=== PATIENT | male | born 1985 | race Hispanic/Latino ===

== ENCOUNTER 2017-11-30 16:01 | Emergency (ER) | payer SELFPAY ==
[2017-11-30] MEDS ORDERED: CEFTRIAXONE SODIUM 500 MG VIAL ONE (16:43)
[2017-11-30] MEDS ORDERED: LIDOCAINE HCL-MPF 1% 2ML VIAL ONE (16:43)
== END 2017-11-30 17:17 | disposition home or self-care (01) ==
LOC: EDH 16:01
DX: R36.9 Urethral discharge, unspecified (principal); Z72.0 Tobacco use
CPT/HCPCS: 96372; 99283; J0696; J3490

== ENCOUNTER 2018-09-16 14:02 | Emergency (ER) | payer SELFPAY | END 2018-09-16 14:31 | disposition home or self-care (01) | LOC: EDH 14:02 | DX: S50.861A Insect bite (nonvenomous) of right forearm, initial encounter (principal); S20.462A Insect bite (nonvenomous) of left back wall of thorax, initial encounter; L03.113 Cellulitis of right upper limb; L03.312 Cellulitis of back [any part except buttock and flank]; Z98.890 Other specified postprocedural states; W57.XXXA Bitten or stung by nonvenomous insect and other nonvenomous arthropods, initial encounter; Y93.89 Activity, other specified; Y92.89 Other specified places as the place of occurrence of the external cause; Y99.8 Other external cause status ==

== ENCOUNTER 2019-08-07 02:07 | Emergency (ER) | payer OTHER ==
[2019-08-07] VITALS (14 sets, daily range): BP systolic 98–154; BP diastolic 53–98
[2019-08-07] MEDS ORDERED: SODIUM CHLORIDE 0.9% 1000ML 1,000 ML IV ONE (02:33)
[2019-08-07] MEDS ORDERED: MORPHINE SULFATE 2 MG/ML 1ML SYG ONE (02:33)
[2019-08-07 02:35] LABS: BASOPHILS % (AUTO) 0.4 % (0.0-5.0); EOSINOPHILS % (AUTO) 1.8 % (0.0-8.0); HEMATOCRIT 47.7 % (42-54); LYMPHOCYTES % (AUTO) 59.6 % (21.0-51.0); MEAN CORPUSCULAR HEMOGLOBIN 28.9 pg (27.0-33.0); MEAN CORPUSCULAR VOLUME 85.2 fL (79-99); MONOCYTES % (AUTO) 5.1 % (3.0-13.0); NEUTROPHILS % (AUTO) 32.8 % (40.0-77.0); PLATELET COUNT (AUTO) 267 K/uL (130-400); RED CELL DISTRIBUTION WIDTH 12.5 % (11.0-15.5)
[2019-08-07] MEDS ORDERED: IOHEXOL 350 MG/ML 100ML INFUS..BTL IV ONE (02:40)
[2019-08-07 02:47] LABS: CREATININE 0.9 mg/dL (0.5-1.5); POTASSIUM 3.1 mmol/L (3.5-5.1)
[2019-08-07 02:49] LABS: ALBUMIN 3.9 g/dL (3.5-5.0); BILIRUBIN,TOTAL 0.4 mg/dL (0.2-1.0); TOTAL PROTEIN, SERUM 8.4 g/dL (6.0-8.3)
[2019-08-07 04:05] LABS: APPEARANCE,URINE Clear (CLEAR); BILIRUBIN,URINE Negative (NEGATIVE); COLOR,URINE Yellow (YELLOW); GLUCOSE, URINE (UA) TRACE mg/dL (NEGATIVE); KETONES,URINE Negative (NEGATIVE); LEUKOCYTE ESTERASE ,URINE Negative (NEGATIVE); NITRATE,URINE Negative (NEGATIVE); OCCULT BLOOD,URINE Negative (NEGATIVE); PH,URINE 6.5 (5.0-8.0); PROTEIN,URINE POS 1+ mg/dL (NEGATIVE); UROBILINOGEN,URINE 0.2 mg/dL (0.2-1.0)
[2019-08-07] MEDS ORDERED: MIDAZOLAM HCL 5 MG/ML 2ML VIAL IV ONE (04:05)
[2019-08-07 04:12] LABS: AMPHET/METH SCREEN,URINE NEGATIVE (NEGATIVE); BARBITURATE SCREEN, URINE NEGATIVE (NEGATIVE); BENZODIAZEPINES SCREEN,URINE NEGATIVE (NEGATIVE); CANNABINOID SCREEN,URINE NEGATIVE (NEGATIVE); COCAINE SCREEN,URINE NEGATIVE (NEGATIVE); OPIATE SCREEN,URINE NEGATIVE (NEGATIVE); PHENCYCLIDINE SCREEN,URINE NEGATIVE (NEGATIVE)
[2019-08-07] MEDS ORDERED: ETOMIDATE 2 MG/ML 10 ML VIAL ONE ×2 (04:18→04:38)
[2019-08-07] MEDS ORDERED: LACTATED RINGERS 1000ML 1,000 ML IV ONE (11:06)
[2019-08-07] MEDS ORDERED: LIDOCAINE PF 2% 5ML ABBOJECT ONE (11:15)
[2019-08-07] MEDS ORDERED: PROPOFOL 10 MG/ML 20ML VIAL IV ONE (11:15)
[2019-08-07] MEDS ORDERED: MIDAZOLAM HCL 1 MG/ML 2ML VIAL ONE (11:16)
--- NOTE | 2019-08-07 15:40 | NUR ---
DISCHARGE INSTRUCTIONS READ AND EXPLAINED TO PATIENT. PATIENT AND FAMILY AT BEDSIDE VERBALIZED UNDERSTANDING ON HOME CARE. QUESTIONS INVITED AND ANSWERED. NO NEW PRESCRIPTION GIVEN
== END 2019-08-07 17:58 | disposition home or self-care (01) ==
LOC: EDH 02:07
DX: S43.014A Anterior dislocation of right humerus, initial encounter (principal); S43.015A Anterior dislocation of left humerus, initial encounter; S00.83XA Contusion of other part of head, initial encounter; Y04.0XXA Assault by unarmed brawl or fight, initial encounter; Y93.89 Activity, other specified; Y92.89 Other specified places as the place of occurrence of the external cause; Y99.8 Other external cause status
CPT/HCPCS: 23650; 36415; 70450; 71260; 72125; 73030 ×4; 74177; 80053; 80305; 81003; 85025; 96374; 99152; 99153; 99285; A4215; A4221; A4222; A4223; A4606; G0480; J2001; J2250 ×2; J2704; J3490 ×2; J7030; J7120; Q9967

== ENCOUNTER 2020-09-06 13:42 | Emergency (ER) | payer OTHER ==
[2020-09-06 13:57] LABS: APPEARANCE,URINE Clear (CLEAR); BILIRUBIN,URINE Negative (NEGATIVE); COLOR,URINE Yellow (YELLOW); GLUCOSE, URINE (UA) >=1000 mg/dL (NEGATIVE); KETONES,URINE Negative (NEGATIVE); LEUKOCYTE ESTERASE ,URINE Negative (NEGATIVE); NITRATE,URINE Negative (NEGATIVE); OCCULT BLOOD,URINE Negative (NEGATIVE); PROTEIN,URINE Trace mg/dL (NEGATIVE)
[2020-09-06 14:06] LABS: RBC,URINE 0-1 /HPF (0-1); WBC,URINE 0-1 /HPF (0-1)
[2020-09-06 14:07] LABS: BACTERIA,URINE Rare /HPF (None Seen); SQUAMOUS EPITHELIAL CELL,UR Rare /HPF (0-2)
[2020-09-06 14:14] LABS: BASOPHILS % (AUTO) 0.4 % (0.0-5.0); EOSINOPHILS % (AUTO) 1.1 % (0.0-8.0); HEMATOCRIT 47.5 % (42-54); LYMPHOCYTES % (AUTO) 19.4 % (21.0-51.0); MEAN CORPUSCULAR HGB CONC 34.5 g/dL (32.0-36.0); MEAN CORPUSCULAR VOLUME 84.1 fL (79-99); MONOCYTES % (AUTO) 7.1 % (3.0-13.0); NEUTROPHILS % (AUTO) 71.8 % (40.0-77.0); PLATELET COUNT (AUTO) 277 K/uL (130-400); RED BLOOD CELL COUNT(AUTO) 5.65 MIL/uL (4.50-6.20); RED CELL DISTRIBUTION WIDTH 12.5 % (11.0-15.5); WHITE BLOOD COUNT (AUTO) 14.1 K/uL (4.8-10.8)
[2020-09-06] MEDS ORDERED: MORPHINE SULFATE 4 MG/1ML SYG ONE (14:29)
[2020-09-06 14:35] LABS: CREATININE 0.9 mg/dL (0.5-1.5); POTASSIUM 4.4 mmol/L (3.5-5.1)
[2020-09-06 14:40] LABS: TOTAL PROTEIN, SERUM 8.4 g/dL (6.0-8.3)
[2020-09-06] MEDS ORDERED: LEVOFLOXACIN 500 MG/D5W 100 ML 100 ML ONE (15:25)
[2020-09-06] MEDS ORDERED: METRONIDAZOLE 500MG/100ML BAG 100 ML ONE (15:25)
[2020-09-06] MEDS ORDERED: IBUPROFEN 600 MG TABLET ONE (17:23)
== END 2020-09-06 17:48 | disposition home or self-care (01) ==
LOC: EDH 13:42
DX: K57.32 Diverticulitis of large intestine without perforation or abscess without bleeding (principal); E11.65 Type 2 diabetes mellitus with hyperglycemia; E78.00 Pure hypercholesterolemia, unspecified
CPT/HCPCS: 36415; 74176; 80053; 81001; 83690; 85025; 96365; 96367; 96375; 99284; J1956; J2270; J3490

== ENCOUNTER 2020-10-29 21:07 | Emergency (ER) | payer OTHER ==
[2020-10-29] MEDS ORDERED: HYDROCODONE/ACETAMINOPHEN 5/325 MG TAB ONE (21:09)
== END 2020-10-29 22:05 | disposition home or self-care (01) ==
LOC: EDH 21:07
DX: G89.11 Acute pain due to trauma (principal); G44.319 Acute post-traumatic headache, not intractable; E11.9 Type 2 diabetes mellitus without complications; E78.00 Pure hypercholesterolemia, unspecified; Z90.49 Acquired absence of other specified parts of digestive tract; Z72.0 Tobacco use
CPT/HCPCS: 70450; 93005